=== PATIENT | female | born 1990 | race Caucasian/White ===

== ENCOUNTER 2018-08-30 15:26 | Outpatient (CLI) | payer OTHER | END 2018-08-30 16:46 | disposition home or self-care (01) | LOC: OBT 15:26 → L-D 15:27 → OBT 16:46 | PROVIDERS: ATTEND Obstetrics & Gynecology | DX: O26.893 Other specified pregnancy related conditions, third trimester (principal); Z3A.30 30 weeks gestation of pregnancy | CPT/HCPCS: 86850; 86885; 86900; 86901; 96372; J2790 ==

== ENCOUNTER 2018-09-09 09:28 | Emergency (ER) | payer OTHER ==
[~2018-09-09] VITALS: Ht 162.6 cm; Wt 106.0 kg
[2018-09-09 09:34] VITALS: BP 128/64; PULSE 97; RESP 18; Ht 162.6 cm; Wt 106.0 kg
[2018-09-09] MEDS ORDERED: ACETAMINOPHEN 500 MG TAB PO STA (10:25)
[2018-09-09] MEDS: KETOROLAC 60 MG INJ IM STA ×2 (10:39→10:53)
[2018-09-09] MEDS: traMADol 50 MG TAB PO ONE ×2 (10:39→10:53)
[2018-09-09] MEDS ORDERED: ACET500C5 PO (11:18)
[2018-09-09] MEDS ORDERED: ONDA4TAB14 PO (11:18)
[2018-09-09] MEDS ORDERED: AMOX1TAB9 PO (11:18)
--- NOTE | 2018-09-09 13:59 | ERD ---
ER Documentation Chief Complaint Chief Complaint pt has right facial swelling and tooth pain 10/10 x 1 day HPI History of Present Illness: 28-year-old female with complaint of right facial swelling and tooth pain. Patient reports pain started today. Patient reports known dental issues in which she has a cracked tooth from 2009 on top right quadrant of mouth tooth patient reports similar episode of this back in 2014 but to the bottom right moderate of mouth. Patient denies fever, chills, malaise. At home pharmacological/nonpharmacological treatment for symptoms: Denies Denies social concerns; Denies recent foreign travel ROS All systems reviewed and are negative except as per history of present illness. Medications Home Meds Active Scripts Acetaminophen* (Tylophen*) 500 Mg Capsule, 2 CAP PO Q6 PRN for PAIN AND OR ELEVATED TEMP, #20 CAP Prov:MARCELA VERDUGO NP 09/09/18 Ondansetron (Ondansetron Odt) 4 Mg Tab.rapdis, 4 MG PO Q8 PRN for NAUSEA AND/OR VOMITING, #10 TAB Prov:MARCELA VERDUGO NP 09/09/18 Amoxicillin/Potassium Clav (Amox-Clav 500-125 mg Tablet) 500-125 mg Tab, 1 TAB PO Q8 for dental infection for 10 Days, TAB Prov:MARCELA VERDUGO NP 09/09/18 Allergies Allergies: Coded Allergies: No Known Allergy (Unverified , 09/09/18) PMhx/Soc Medical and Surgical Hx: pt denies Medical Hx, pt denies Surgical Hx Hx Alcohol Use: No Hx Substance Use: No Hx Tobacco Use: No Physical Exam Vitals Vital Signs Date Temp Pulse Resp B/P (MAP) Pulse Ox O2 O2 Flow FiO2 Time Delivery Rate 09/09/18 98.1 97 18 128/64 100 09:34 (85) Physical Exam Const: No acute distress, afebrile Head: Atraumatic Eyes: Normal Conjunctiva ENT: Normal External Ears, Nose. Tenderness to palpation along gumline, mild fluctuance noted to gumline at tooth #4. Patient able to open mouth fully. Neck: Full range of motion. No meningismus. Resp: Clear to auscultation bilaterally Cardio: Regular rate and rhythm, no murmurs Abd: Soft, non tender, non distended. Normal bowel sounds Skin: No petechiae or rashes Back: No midline or flank tenderness Ext: No cyanosis, or edema Neur: Awake and alert Psych: Normal Mood and Affect Results 24 hrs Laboratory Tests Test 09/09/18 10:38 POC Beta HCG, Qualitative POSITIVE Current Medications Medications Dose Sig/Renetta Start Time Status Last (Trade) Ordered Route PRN Stop Time Admin Dose Reason Admin Ketorolac 60 mg ONCE STAT 09/09/18 DC Tromethamine IM 10:25 (Toradol) 09/09/18 10:27 Tramadol 50 mg ONCE ONCE 09/09/18 DC HCl PO 10:30 (Ultram) 09/09/18 10:31 1,000 mg ONCE STAT 09/09/18 DC 09/09/18 Acetaminophen PO 10:25 10:40 (Tylenol 09/09/18 10:27 Tab) Procedures/MDM ED course includes a thorough examination and history. Medications: Ketorolac, acetaminophen, tramadol Imaging: --- Labs: Urine Low suspicion for life-threatening medical emergency. Low suspicion for infectious emergency that requires hospitalization or immediate surgical intervention. Patient hemodynamically stable without fever. No incision and drainage indicated at this time. Otherwise healthy patient presenting with constellation of symptoms likely representing uncomplicated dental abscess/dental pain as characterized by history, physical exam findings, lab findings. Urine positive. Due to positive will not give tramadol and ketorolac. No respiratory distress, otherwise relatively well appearing and nontoxic. Patient educated on diagnoses, prescriptions, follow-up care, return precautions. Strict return precautions given for worsening condition; questions answered discharge. Disposition for discharge with followup in 2 days with PCP/clinic. Departure Diagnosis: Primary Impression: Dental abscess Additional Impression: Pain, dental Condition: Stable Patient Instructions: Dental Abscess, Dental Pain Referrals: COMMUNITY CLINICS YOU HAVE RECEIVED A MEDICAL SCREENING EXAM AND THE RESULTS INDICATE THAT YOU DO NOT HAVE A CONDITION THAT REQUIRES URGENT TREATMENT IN THE EMERGENCY DEPARTMENT. FURTHER EVALUATION AND TREATMENT OF YOUR CONDITION CAN WAIT UNTIL YOU ARE SEEN IN YOUR DOCTORS OFFICE WITHIN THE NEXT 1-2 DAYS. IT IS YOUR RESPONSIBILITY TO MAKE AN APPOINTMENT FOR FOLOW-UP CARE. IF YOU HAVE A PRIMARY DOCTOR --you should call your primary doctor and schedule an appointment IF YOU DO NOT HAVE A PRIMARY DOCTOR YOU CAN CALL OUR PHYSICIAN REFERRAL HOTLINE AT IF YOU CAN NOT AFFORD TO SEE A PHYSICIAN YOU CAN CHOSE FROM THE FOLLOWING [facility] [address] [place] [address] [facility] [address] [facility] [address] [facility] [address] [facility] [address] [facility] YOU HAVE RECEIVED A MEDICAL SCREENING EXAM AND THE RESULTS INDICATE THAT YOU DO NOT HAVE A CONDITION THAT REQUIRES URGENT TREATMENT IN THE EMERGENCY DEPARTMENT. FURTHER EVALUATION AND TREATMENT OF YOUR CONDITION CAN WAIT UNTIL YOU ARE SEEN IN YOUR DOCTORS OFFICE WITHIN THE NEXT 1-2 DAYS. IT IS YOUR RESPONSIBILITY TO MAKE AN APPOINTMENT FOR FOLOW-UP CARE. IF YOU HAVE A PRIMARY DOCTOR --you should call your primary doctor and schedule and appointment IF YOU DO NOT HAVE A PRIMARY DOCTOR YOU CAN CALL OUR PHYSICIAN REFERRAL HOTLINE AT . IF YOU CAN NOT AFFORD TO SEE A PHYSICIAN YOU CAN CHOSE FROM THE FOLLOWING [facility] INSTITUTIONS: [facility] [address] [place] [address] [facility] [address] [place] [address] [facility] + [facility] [address] [place] [address] [facility] ([facility] walk in clinic) Additional Instructions: Thank you very much for allowing us to participate in your care. Your health and safety is our top priority at [facility]. It is important to read all discharge instructions and education provided in your discharge packet. Call your primary care doctor TOMORROW for an appointment during the next 2-4 days and bring all the information and medications prescribed. Have prescriptions filled and follow precisely the directions on the label. -Augmentin is an antibiotic; take this medication every day every 8 hours as listed on your prescription. You must complete the entire course of treatment that is listed on your prescription this is very important because it takes a ce rtain number of days to kill the bacteria that is causing the infection. -Acetaminophen as a pain medication. Take this medication every 6-8 hours as needed. This medication is safe during -Zofran is a medication for nausea/vomitting; take this medication as needed for nausea/vomiting/decreased appetite. Augmentin can cause nausea or vomiting; so this medication is if you need it. If the symptoms get worse and your provider is unavailable, return to the Emergency Department immediately. MARCELA VERDUGO NP Sep 09, 2018 13:59
== END 2018-09-09 11:45 | disposition home or self-care (01) ==
LOC: FTE 09:28
DX: K04.7 Periapical abscess without sinus (principal)
CPT/HCPCS: 81025; Z7502; Z7610; 99283; J1885

== ENCOUNTER 2018-09-16 21:37 | Outpatient (CLI) | payer OTHER ==
[~2018-09-16] VITALS: Ht 162.6 cm; Wt 107.5 kg
[~2018-09-16 21:37] MED LIST: ACET500C5 PO; AMOX1TAB9 PO; ONDA4TAB14 PO
[2018-09-16 22:05] VITALS: BP 121/64; PULSE 84; RESP 18
[2018-09-16] MEDS ORDERED: PREN-19 PO (22:07)
[2018-09-16] MEDS ORDERED: LACTATED RINGER'S 1,000 ML IV ONE (23:00)
[2018-09-17] MEDS ORDERED: LACTATED RINGER'S 1,000 ML IV SCH
--- NOTE | 2018-09-17 00:38 | PN ---
Triage Information Date/Time September 17, 2018 Reason for visit: Abd/pelvic pain Weeks of Gestation 30w 4d /Para 6/5 Diabetes: none Hypertention: none Additional information Pt reports vaginal pressure and lower back pain since 09/16. No bleeding or leaking. +FM. Objective Vital Signs Date Temp Pulse Resp B/P (MAP) Pulse Ox O2 O2 Flow FiO2 Time Delivery Rate 09/16/18 98.1 84 18 121/64 Room Air 22:05 (83) Heart Rate: 140's Heart Rate Comments Accels to 175 BPM. No decels. Contractions: None Results/Medications Result Diagram: 09/16/18 2313 Results 24 hrs Laboratory Tests Test 09/16/18 21:40 09/16/18 23:13 Urine Color YELLOW Urine Clarity SLIGHTLY CLOUDY A Urine pH 6.0 Urine Specific [place] 1.020 Urine Ketones NEGATIVE Urine Nitrite NEGATIVE Urine Bilirubin NEGATIVE Urine Urobilinogen 1+ H Urine Leukocyte Esterase NEGATIVE Urine Microscopic RBC 2 Urine Microscopic WBC 3 Urine Squamous Epithelial Cells FEW Urine Bacteria FEW A Urine Mucus FEW A Urine Hemoglobin NEGATIVE Urine Glucose NEGATIVE Urine Total Protein NEGATIVE White Blood Count 12.9 H Red Blood Count 3.39 L Hemoglobin 10.0 L Hematocrit 30.7 L Mean Corpuscular Volume 90.6 Mean Corpuscular Hemoglobin 29.5 Mean Corpuscular Hemoglobin Concent 32.6 Red Cell Distribution Width 13.1 Platelet Count 365 Mean Platelet Volume 10.3 Immature Granulocytes % 0.400 Neutrophils % 73.0 Lymphocytes % 17.9 Monocytes % 7.9 Eosinophils % 0.6 Basophils % 0.2 Nucleated Red Blood Cells % 0.0 Immature Granulocytes # 0.050 H Neutrophils # 9.5 H Lymphocytes # 2.3 Monocytes # 1.0 H Eosinophils # 0.1 Basophils # 0.0 Nucleated Red Blood Cells # 0.0 Medications Current Medications Lactated Ringer's 1,000 ml @ 125 mls/hr Q8H IV ; Start 09/17/18 at 00:00 Imaging Results EFW 1464 grams 20th%tile. Cx length 3.6 cm/closed. Disposition: Discharge Assessment/Plan A: IUP at 30w 4d. False labor. P: After IV hydration the pt feels substantially better and is ready for d/c. Keep f/u appt 09/[address] Parks. PTL precautions reviewed. LISA ROWLEY MD Sep 17, 2018 00:38
--- NOTE | 2018-09-17 00:55 | TRIAGE ---
OB Triage Datetime Report Generated by CPN: 09/17/2018 00:54 Datetime: 09/16/2018 23:48 Vaginal Exam Membrane Status: Intact Datetime: 09/16/2018 23:46 Stage of : OB Triage Heart Rate FHR Baseline Rate: 140 Monitor Mode: External US FHR Baseline Changes: No Baseline Change Variability: Moderate 6-25 bpm Accelerations: 10X10 Decelerations: None Category: Category I Datetime: 09/16/2018 22:50 Stage of : OB Triage Labor Evaluation Monitor Mode: External Duration (sec)2399: 5-10sec Quality: Mild Pattern: Normal: <= 5 Contractions in 10 Minutes Resting Tone [place]: Relaxed Heart Rate FHR Baseline Rate: 150 Monitor Mode: External US FHR Baseline Changes: No Baseline Change Variability: Moderate 6-25 bpm Accelerations: 15X15 Decelerations: None Category: Category I Datetime: 09/16/2018 22:05 Time of Arrival: 09/16/2018 21:29 EGA: 30.3 Arrived By: Wheelchair Arrived From: Home Chief Complaint: c/o vag pressure since last night and back pain since 0400 Movement: Present Contractions: Denies/Absent Rupture of Membranes: Denies Vaginal Bleeding: None Vaginal Discharge: Denies Recent Sexual Intercouse: Denies Abdominal Trauma: Not Applicable Patient Complaints: Back Pain; Other Time Provider Notified: 09/16/2018 22:50 Provider Notified: Dr Parks Initial Plan: EFM,UA Datetime: 09/16/2018 21:43 Stage of : OB Triage Maternal Assessment Level of Consciousness: Fully Conscious Headache: Denies Blurred Vision: No Nausea/Vomiting: Denies RUQ Epigastric Pain: Denies Facial Edema: None Labor Evaluation Monitor Mode: External Resting Tone [place]: Relaxed Monitor Mode: External US Comments: FHT 150 Datetime: 08/30/2018 17:22 Stage of : OB Triage Datetime: 08/30/2018 17:20 Stage of : rhogam given in left buttocks.
== END 2018-09-17 00:36 | disposition home or self-care (01) ==
LOC: OBT 21:37 → L-D 21:37 → OBT 09-17 00:36
PROVIDERS: ATTEND Obstetrics & Gynecology
DX: O26.893 Other specified pregnancy related conditions, third trimester (principal); Z3A.30 30 weeks gestation of pregnancy; R10.2 Pelvic and perineal pain
CPT/HCPCS: 36415; 76815; 76817; 81001; 85025; 96360; J7120; Z7500; 81003; G0463

== ENCOUNTER 2018-11-09 18:53 | Observation (INO) | payer OTHER ==
[~2018-11-09] VITALS: Ht 165.1 cm; Wt 108.4 kg
[~2018-11-09 18:53] MED LIST changes: -ACET500C5 PO; -AMOX1TAB9 PO; -ONDA4TAB14 PO; +PREN-19 PO
[2018-11-09 19:05] VITALS: Ht 165.1 cm; Wt 108.4 kg
[2018-11-09] MEDS ORDERED: LACTATED RINGER'S 1,000 ML IV PRN (23:09)
[2018-11-09] MEDS ORDERED: METHYLERGONOVINE 0.2 MG INJ IM PRN (23:30)
[2018-11-09] MEDS ORDERED: MISOPROSTOL 200 MCG TAB PR PRN (23:30)
[2018-11-09] MEDS ORDERED: LIDOCAINE 1% (MPF) 30 ML INJ INJ PRN (23:30)
[2018-11-09] MEDS ORDERED: OXYTOCIN 30 UNITS/LR 500 ML IV PRN (23:30)
[2018-11-09] MEDS ORDERED: OXYTOCIN 30 UNITS/LR 500 ML IV SCH ×2 (23:30)
[2018-11-09] MEDS ORDERED: BUTORPHANOL 2 MG INJ IV PRN ×2 (23:30)
[2018-11-09] MEDS ORDERED: CARBOPROST 250 MCG INJ IM PRN (23:30)
[2018-11-09] MEDS ORDERED: IBUPROFEN 600 MG TAB PO PRN (23:30)
[2018-11-09] MEDS ORDERED: MINERAL OIL LIGHT 10 ML VIAL TOP ONE (23:30)
--- NOTE | 2018-11-09 23:56 | TRIAGE ---
OB Triage Datetime Report Generated by CPN: 11/09/2018 23:55 Datetime: 11/09/2018 20:57 Stage of : OB Triage Labor Evaluation Frequency: 5-8 Monitor Mode: External Quality: Mild Pattern: Normal: <= 5 Contractions in 10 Minutes Resting Tone [place]: Relaxed Heart Rate FHR Baseline Rate: 150 Monitor Mode: External US FHR Baseline Changes: No Baseline Change Variability: Moderate 6-25 bpm Accelerations: 15X15 Decelerations: None Category: Category I Vaginal Exam Dilatation (cms): 1.5 Effacement (%): 60 Station: -3 Exam By: Thelma Garza Amniotic Fluid Amount: None Amniotic Fluid Odor: None Vaginal Bleeding: None Pool: Negative Nitrazine: Negative Cervix, Consistency: Soft Cervix, Position: Posterior Presentation 'A': Cephalic Datetime: 11/09/2018 19:06 Time of Arrival: 11/09/2018 18:48 EGA: 38.1 Arrived By: Ambulatory Arrived From: Home Chief Complaint: back pain Movement: Present Contractions: Occasional Rupture of Membranes: Denies Vaginal Bleeding: Normal Show Vaginal Discharge: Denies Recent Sexual Intercouse: Yes Abdominal Trauma: Not Applicable Patient Complaints: Contractions; Back Pain Time Provider Notified: 11/09/2018 20:00 Initial Plan: NST Datetime: 09/17/2018 00:24 Stage of : OB Triage Monitor Mode: External Quality: Mild Pattern: Normal: <= 5 Contractions in 10 Minutes Resting Tone [place]: Relaxed Heart Rate FHR Baseline Rate: 140 Monitor Mode: External US FHR Baseline Changes: No Baseline Change Variability: Moderate 6-25 bpm Accelerations: 10X10 Category: Category I Pain Assessment Pain Scale: 0 Pain Presence: None/Denies Pain Type: N/A Datetime: 09/16/2018 22:05 EGA: 30.3
[2018-11-10] MEDS: LACTATED RINGER'S 1,000 ML IV SCH ×2 (06:06→11:19)
--- NOTE | 2018-11-10 12:45 | DS ---
Date/Time of Note Date/Time of Note DATE: 11/10/18 TIME: 12:41 Obstetrical Discharge Record Final Diagnosis Final Diagnosis: Term not delivered Complications Other (oligohydamnious) Augmentation: No Induction: No Rupture of Membranes: No Condition on Discharge Physical Assessment Last Vitals: vss afebrile Voiding: Yes Bowel Movement: Yes Breast: Soft, non-tender Fundus: Other () Abdomen and Incision: Calf Tenderness: No Patient Condition: Stable REMIGIO TAPIA MD Nov 10, 2018 12:45
--- NOTE | 2018-11-10 12:53 | PD.PPDC ---
STAFF THERAPIST Discharge Instruction Diagnosis [id number] Final Diagnosis: Ruidv8c IUP 38w2d NIL oligohydramnious Condition [id number] Patient Condition: Bqbiy0r Stable Diet Uedin1Sv Diet: Znfug3r Resume Regular Diet Activity/Restrictions [id number] Activity: [id number] Normal Activity Follow-up Provider Information: f/u with her OB Return to clinic for Comment: RTH with routine labor instructions REMIGIO TAPIA MD Nov 10, 2018 12:53
--- NOTE | 2018-11-12 18:36 | PREOPHP ---
DATE OF ADMISSION: 11/09/2018 HISTORY OF PRESENT ILLNESS: This is a 28-year-old lady with 6 para 5, EDC 11/22/2018 at 38 a nd 1/7 weeks , admitted to labor and delivery area because of lower abdominal pains and low b ack pains. She had care in my [place] office and the care was uneventful. She sta rted to have this lower abdominal pains and low back pains for the last few hours and getting worse u p to the time of admission. PAST PERSONAL HISTORY: No history of diabetes, TB, asthma. ALLERGIES: NO ALLERGIES. SOCIAL HISTORY: The patient does not smoke. She does not drink. MEDICATIONS: She does not take any drugs except her: 1. Iron. 2. Vitamins. GYNECOLOGIC HISTORY: She had menarche at the age of 13, every 28 days interval, 3 to 4 days duration and moderate in amount. FAMILY HISTORY: Grandmother on mother's side had diabetes. She is 7, para 5. First deliver y was 2008 and last was 2017, all normal deliveries. REVIEW OF SYSTEMS: CARDIOVASCULAR: No chest pains. RESPIRATORY: No cough. GASTROINTESTINAL: No diarrhea, no vomiting. GENITOURINARY: No dysuria. PHYSICAL EXAMINATION: GENERAL: Reveals a conscious, coherent lady and in no acute distress. VITAL SIGNS: Her blood pressure 120/80, pulse rate 80 per minute, respirations 16 per minute. BREASTS, HEART AND LUNGS: Within normal limits. ABDOMEN: Soft. Fundic height is 36 cm according to the nurse. PELVIC: Done by nurse revealed the cervix to be 1 cm dilated, thick, station -2 in cephalic presenta tion with the bag of water intact. EXTREMITIES: No pedal edema. ADMITTING DIAGNOSES: A 38 and 1/7 weeks intrauterine , rule out labor. The plans were explained to the patient by the nurse. The patient was observed overnight and the fol lowing day after admission, she was reevaluated by the nurse and the cervix was still 1 cm dilated. She was having mild irregular contractions, so she was planned to be discharged home and to be seen b y the laborist. I will like her to make an appointment to this clinic following day after admission. Dictated By: JOZEF ABRAMS/MILY Conf#: [id number] DID#: [id number] CC: MORE TAPIA MD;*End*
== END 2018-11-10 13:40 | disposition home or self-care (01) ==
LOC: L-D 18:53 → OBT 18:53 → L-D 22:33 → OBT 22:33 → INTOOBSV 22:33 → OBSVTOIN 23:09 → INTOOBSV 23:09 → L-D 11-10 06:09
PROVIDERS: ADMIT Obstetrics & Gynecology; ATTEND Obstetrics & Gynecology
DX: O47.1 False labor at or after 37 completed weeks of gestation (principal); O41.03X0 Oligohydramnios, third trimester, not applicable or unspecified; Z3A.38 38 weeks gestation of pregnancy
CPT/HCPCS: 76815; 76816; 76818; 81003; 84112; 85025; 85610; 85730; 86592; 86850; 86900; 86901; 87086; 87340; J7120; Z7500; 99217; G0378; G0463

== ENCOUNTER 2018-11-16 12:30 | Inpatient (IN) | payer OTHER ==
[~2018-11-16] VITALS: Ht 162.6 cm; Wt 109.0 kg
[2018-11-16] MEDS ORDERED: LIDOCAINE 1% (MPF) 30 ML INJ INJ PRN (13:00)
[2018-11-16] MEDS ORDERED: BUTORPHANOL 2 MG INJ IV PRN (13:00)
[2018-11-16] MEDS ORDERED: MISOPROSTOL 200 MCG TAB PR PRN ×2 (13:00→23:30)
[2018-11-16] MEDS ORDERED: OXYTOCIN 30 UNITS/LR 500 ML IV PRN ×2 (13:00→23:30)
[2018-11-16] MEDS ORDERED: METHYLERGONOVINE 0.2 MG INJ IM PRN ×2 (13:00→23:30)
[2018-11-16] MEDS ORDERED: CARBOPROST 250 MCG INJ IM PRN ×2 (13:00→23:30)
[2018-11-16] MEDS ORDERED: OXYTOCIN 30 UNITS/LR 500 ML IV SCH ×5 (13:00→23:49)
--- NOTE | 2018-11-16 13:04 | TRIAGE ---
OB Triage Datetime Report Generated by CPN: 11/16/2018 13:04 Datetime: 11/16/2018 13:02 Stage of : Labor Labor Evaluation Frequency: 0 Monitor Mode: External Pattern: Normal: <= 5 Contractions in 10 Minutes Resting Tone [place]: Relaxed Heart Rate FHR Baseline Rate: 140 Monitor Mode: External US Variability: Moderate 6-25 bpm Accelerations: 15X15 Decelerations: None Category: Category I Datetime: 11/16/2018 12:48 Vaginal Exam Dilatation (cms): 1.5 Effacement (%): 80 Station: -2 Exam By: Josh BORJA Datetime: 11/16/2018 12:41 Assessment Type: Triage Maternal Assessment Level of Consciousness: Keenly Alert, Responsive DTR's/Clonus: DTRs 2+; No Clonus Headache: Denies Blurred Vision: No Respiratory Effort: Unlabored; Regular Rhythm; Equal Expansion Breath Sounds, Left: Clear and Equal Breath Sounds, Right: Clear and Equal Nausea/Vomiting: Denies RUQ Epigastric Pain: Denies Lower Extremities Edema: None Degree: None Upper Extremities Edema: None Degree: None Facial Edema: None Fall Risk Assessment History of Falling: (0) No Secondary Diagnosis: (0) No Ambulatory Aid: (0) Bedrest/Nurse Assist IV Therapy: (0) No Gait: (0) Normal/Bedrest/Immobile Mental Status: (0) Oriented to Own Ability Fall Score: 0 Fall Risk Score Definition: No Risk: No action required Datetime: 11/16/2018 12:40 Time of Arrival: 11/16/2018 12:20 EGA: 39.1 Arrived By: Ambulatory Arrived From: Home Chief Complaint: PT. HERE C/O DFM Movement: Decreased Contractions: Denies/Absent Rupture of Membranes: Denies Vaginal Bleeding: None Vaginal Discharge: Present Recent Sexual Intercouse: Denies Abdominal Trauma: Not Applicable Patient Complaints: Cramping Time Provider Notified: 11/16/2018 12:45 Provider Notified: SALCEDA Datetime: 11/16/2018 12:38 Monitor Mode: External Monitor Mode: External US Datetime: 11/10/2018 13:30 Labor Evaluation Frequency: OCC Monitor Mode: External Quality: Mild Pattern: Normal: <= 5 Contractions in 10 Minutes Resting Tone [place]: Relaxed Heart Rate FHR Baseline Rate: 135 Monitor Mode: External US FHR Baseline Changes: No Baseline Change Variability: Moderate 6-25 bpm Accelerations: 15X15 Decelerations: None Category: Category I Datetime: 11/10/2018 12:37 Monitor Mode: External US Comments: Loss of contact. Patient sitting straight up in bed Datetime: 11/10/2018 12:30 Labor Evaluation Frequency: OCC Monitor Mode: External Quality: Mild Pattern: Normal: <= 5 Contractions in 10 Minutes Resting Tone [place]: Relaxed Heart Rate FHR Baseline Rate: 135 Monitor Mode: External US FHR Baseline Changes: No Baseline Change Variability: Moderate 6-25 bpm Accelerations: 10X10 Decelerations: None Category: Category I Datetime: 11/10/2018 12:03 Vaginal Exam Dilatation (cms): 1.5 Effacement (%): 50 Station: -3 Exam By: BY Datetime: 11/10/2018 11:30 Labor Evaluation Frequency: OCC Monitor Mode: External Quality: Mild Pattern: Normal: <= 5 Contractions in 10 Minutes Resting Tone [place]: Relaxed Heart Rate FHR Baseline Rate: 135 Monitor Mode: External US FHR Baseline Changes: No Baseline Change Variability: Moderate 6-25 bpm Accelerations: 10X10 Decelerations: None Category: Category I Pain Presence: None/Denies Datetime: 11/10/2018 10:30 Labor Evaluation Frequency: OCC Monitor Mode: External Quality: Mild Pattern: Normal: <= 5 Contractions in 10 Minutes Resting Tone [place]: Relaxed Heart Rate FHR Baseline Rate: 140 Monitor Mode: External US FHR Baseline Changes: No Baseline Change Variability: Moderate 6-25 bpm Accelerations: 15X15 Decelerations: None Category: Category I Pain Presence: None/Denies Datetime: 11/10/2018 09:30 Labor Evaluation Frequency: OCC Monitor Mode: External Quality: Mild Pattern: Normal: <= 5 Contractions in 10 Minutes Resting Tone [place]: Relaxed Heart Rate FHR Baseline Rate: 130 Monitor Mode: External US FHR Baseline Changes: No Baseline Change Variability: Moderate 6-25 bpm Accelerations: 15X15 Decelerations: None Category: Category I Pain Presence: None/Denies Datetime: 11/10/2018 08:30 Labor Evaluation Frequency: OCC Monitor Mode: External Quality: Mild Pattern: Normal: <= 5 Contractions in 10 Minutes Resting Tone [place]: Relaxed Heart Rate FHR Baseline Rate: 140 Monitor Mode: External US FHR Baseline Changes: No Baseline Change Variability: Moderate 6-25 bpm Accelerations: 10X10 Decelerations: None Category: Category I Pain Presence: None/Denies Datetime: 11/10/2018 07:30 Labor Evaluation Frequency: OCC Monitor Mode: External Quality: Mild Pattern: Normal: <= 5 Contractions in 10 Minutes Resting Tone [place]: Relaxed Heart Rate FHR Baseline Rate: 140 Monitor Mode: External US FHR Baseline Changes: No Baseline Change Variability: Moderate 6-25 bpm Accelerations: 15X15 Decelerations: None Category: Category I Pain Presence: None/Denies Datetime: 11/10/2018 07:21 Assessment Type: Ongoing Assessment Maternal Assessment Level of Consciousness: Keenly Alert, Responsive DTR's/Clonus: DTRs 2+; No Clonus Headache: Denies Blurred Vision: No Respiratory Effort: Unlabored; Regular Rhythm; Equal Expansion Breath Sounds, Left: Clear and Equal Breath Sounds, Right: Clear and Equal Nausea/Vomiting: Denies RUQ Epigastric Pain: Denies Lower Extremities Edema: None Degree: None Upper Extremities Edema: None Degree: None Facial Edema: None Fall Risk Assessment History of Falling: (0) No Secondary Diagnosis: (0) No Ambulatory Aid: (0) Bedrest/Nurse Assist IV Therapy: (20) Yes Gait: (0) Normal/Bedrest/Immobile Mental Status: (0) Oriented to Own Ability Fall Score: 20 Fall Risk Score Definition: No Risk: No action required Datetime: 11/10/2018 07:00 Stage of : Labor Maternal Assessment Level of Consciousness: Keenly Alert, Responsive DTR's/Clonus: DTRs 2+; No Clonus Headache: Denies Breath Sounds, Left: Clear and Equal Breath Sounds, Right: Clear and Equal Nausea/Vomiting: Denies RUQ Epigastric Pain: Denies Labor Evaluation Frequency: OCCASIONAL Monitor Mode: External Duration (sec)2399: 70 Quality: Mild Pattern: Normal: <= 5 Contractions in 10 Minutes Resting Tone [place]: Relaxed Heart Rate FHR Baseline Rate: 130 Monitor Mode: External US FHR Baseline Changes: No Baseline Change Variability: Moderate 6-25 bpm Accelerations: 15X15 Decelerations: Variable Category: Category II Datetime: 11/10/2018 06:00 Stage of : Labor Maternal Assessment Level of Consciousness: Keenly Alert, Responsive DTR's/Clonus: DTRs 2+; No Clonus Headache: Denies Breath Sounds, Left: Clear and Equal Breath Sounds, Right: Clear and Equal Nausea/Vomiting: Denies RUQ Epigastric Pain: Denies Labor Evaluation Frequency: IRREG Monitor Mode: External Duration (sec)2399: 50-60 Quality: Mild Pattern: Normal: <= 5 Contractions in 10 Minutes Resting Tone [place]: Relaxed Heart Rate FHR Baseline Rate: 135 Monitor Mode: External US FHR Baseline Changes: No Baseline Change Variability: Moderate 6-25 bpm Accelerations: 15X15 Decelerations: None Category: Category I Datetime: 11/10/2018 05:00 Stage of : Labor Maternal Assessment Level of Consciousness: Keenly Alert, Responsive DTR's/Clonus: DTRs 2+; No Clonus Headache: Denies Breath Sounds, Left: Clear and Equal Breath Sounds, Right: Clear and Equal Nausea/Vomiting: Denies RUQ Epigastric Pain: Denies Temperature Route: Oral Labor Evaluation Frequency: IRREG Monitor Mode: External Duration (sec)2399: 50-60 Quality: Mild Pattern: Normal: <= 5 Contractions in 10 Minutes Resting Tone [place]: Relaxed Heart Rate FHR Baseline Rate: 135 Monitor Mode: External US FHR Baseline Changes: No Baseline Change Variability: Moderate 6-25 bpm Accelerations: 15X15 Decelerations: None Category: Category I Datetime: 11/10/2018 04:00 Stage of : Labor Maternal Assessment Level of Consciousness: Keenly Alert, Responsive DTR's/Clonus: DTRs 2+; No Clonus Headache: Denies Breath Sounds, Left: Clear and Equal Breath Sounds, Right: Clear and Equal Nausea/Vomiting: Denies RUQ Epigastric Pain: Denies Labor Evaluation Frequency: IRREG Monitor Mode: External Duration (sec)2399: 50-60 Quality: Mild Pattern: Normal: <= 5 Contractions in 10 Minutes Resting Tone [place]: Relaxed Heart Rate FHR Baseline Rate: 140 Monitor Mode: External US FHR Baseline Changes: No Baseline Change Variability: Moderate 6-25 bpm Accelerations: 15X15 Decelerations: None Category: Category I Datetime: 11/10/2018 03:00 Stage of : Labor Maternal Assessment Level of Consciousness: Keenly Alert, Responsive DTR's/Clonus: DTRs 2+; No Clonus Headache: Denies Breath Sounds, Left: Clear and Equal Breath Sounds, Right: Clear and Equal Nausea/Vomiting: Denies RUQ Epigastric Pain: Denies Labor Evaluation Frequency: IRREG Monitor Mode: External Duration (sec)2399: 50-60 Quality: Mild Pattern: Normal: <= 5 Contractions in 10 Minutes Resting Tone [place]: Relaxed Heart Rate FHR Baseline Rate: 140 Monitor Mode: External US FHR Baseline Changes: No Baseline Change Variability: Moderate 6-25 bpm Accelerations: 15X15 Decelerations: None Category: Category I Datetime: 11/10/2018 02:00 Stage of : Labor Maternal Assessment Level of Consciousness: Keenly Alert, Responsive DTR's/Clonus: DTRs 2+; No Clonus Headache: Denies Breath Sounds, Left: Clear and Equal Breath Sounds, Right: Clear and Equal Nausea/Vomiting: Denies RUQ Epigastric Pain: Denies Labor Evaluation Frequency: IRREG Monitor Mode: External Duration (sec)2399: 50-60 Quality: Mild Pattern: Normal: <= 5 Contractions in 10 Minutes Resting Tone [place]: Relaxed Heart Rate FHR Baseline Rate: 140 Monitor Mode: External US FHR Baseline Changes: No Baseline Change Variability: Moderate 6-25 bpm Accelerations: 15X15 Decelerations: None Category: Category I Datetime: 11/10/2018 01:00 Stage of : Labor Assessment Type: Admission Assessment Maternal Assessment Level of Consciousness: Keenly Alert, Responsive DTR's/Clonus: DTRs 2+; No Clonus Headache: Denies Blurred Vision: No Respiratory Effort: Unlabored; Regular Rhythm; Equal Expansion Breath Sounds, Left: Clear and Equal Breath Sounds, Right: Clear and Equal Nausea/Vomiting: Denies RUQ Epigastric Pain: Denies Lower Extremities Edema: None Degree: None Upper Extremities Edema: None Degree: None Facial Edema: None Temperature Route: Oral Fall Risk Assessment History of Falling: (0) No Secondary Diagnosis: (0) No Ambulatory Aid: (0) Bedrest/Nurse Assist IV Therapy: (0) No Gait: (0) Normal/Bedrest/Immobile Mental Status: (0) Oriented to Own Ability Fall Score: 0 Fall Risk Score Definition: No Risk: No action required Labor Evaluation Frequency: IRREG Monitor Mode: External Duration (sec)2399: 50-60 Quality: Mild Pattern: Normal: <= 5 Contractions in 10 Minutes Resting Tone [place]: Relaxed Heart Rate FHR Baseline Rate: 140 Monitor Mode: External US FHR Baseline Changes: No Baseline Change Variability: Moderate 6-25 bpm Accelerations: 15X15 Decelerations: None Category: Category I Datetime: 11/10/2018 00:34 Heart Rate FHR Baseline Rate: 140 Monitor Mode: External US Category: Category I Datetime: 11/10/2018 00:26 Monitor Mode: External Quality: Mild Pattern: Normal: <= 5 Contractions in 10 Minutes Resting Tone [place]: Relaxed Heart Rate FHR Baseline Rate: 130 Monitor Mode: External US FHR Baseline Changes: No Baseline Change Variability: Moderate 6-25 bpm Accelerations: 15X15 Decelerations: None Category: Category I Datetime: 11/09/2018 23:27 Stage of : Labor Monitor Mode: External Quality: Mild Pattern: Normal: <= 5 Contractions in 10 Minutes Resting Tone [place]: Relaxed Heart Rate FHR Baseline Rate: 130 Monitor Mode: External US FHR Baseline Changes: No Baseline Change Variability: Moderate 6-25 bpm Accelerations: 15X15 Decelerations: None Category: Category I Datetime: 11/09/2018 22:33 Stage of : OB Triage Labor Evaluation Frequency: 4-8 Monitor Mode: External Quality: Mild Pattern: Normal: <= 5 Contractions in 10 Minutes Resting Tone [place]: Relaxed Heart Rate FHR Baseline Rate: 130 Monitor Mode: External US FHR Baseline Changes: No Baseline Change Variability: Moderate 6-25 bpm Accelerations: 15X15 Decelerations: None Category: Category I Datetime: 11/09/2018 20:26 Monitor Mode: External Quality: Mild Pattern: Normal: <= 5 Contractions in 10 Minutes Resting Tone [place]: Relaxed Datetime: 11/09/2018 20:00 Stage of : OB Triage Labor Evaluation Frequency: x1 Monitor Mode: External Quality: Mild Pattern: Normal: <= 5 Contractions in 10 Minutes Resting Tone [place]: Relaxed Heart Rate FHR Baseline Rate: 140 Monitor Mode: External US FHR Baseline Changes: No Baseline Change Variability: Moderate 6-25 bpm Accelerations: 15X15 Decelerations: None Category: Category I Datetime: 11/09/2018 19:21 Stage of : OB Triage Maternal Assessment Level of Consciousness: Keenly Alert, Responsive Headache: Denies Blurred Vision: No Nausea/Vomiting: Denies RUQ Epigastric Pain: Denies Facial Edema: None Monitor Mode: External Resting Tone [place]: Relaxed Heart Rate FHR Baseline Rate: 140 Monitor Mode: External US FHR Baseline Changes: No Baseline Change Variability: Moderate 6-25 bpm Accelerations: 15X15 Decelerations: None Category: Category I Pain Assessment Pain Scale: 5 Pain Presence: Intermittent Pain Type: Contraction Pain Location: Abdomen Datetime: 11/09/2018 19:06 EGA: 38.1 Provider Notified: Salceda Datetime: 09/16/2018 22:05 EGA: 30.3
[2018-11-16] MEDS: LACTATED RINGER'S 1,000 ML IV SCH ×2 (14:40→19:36)
--- NOTE | 2018-11-16 20:09 | PREAC ---
Date/Time of Note Date/Time of Note DATE: 11/16/18 TIME: 20:08 Anesthesia Eval and Record Evaluation Time Pre-Procedure Interview DATE: 11/16/18 TIME: 20:08 Age 28 Sex female NPO: 8 hrs Preoperative diagnosis labor pain Planned procedure epidural Past Medical History Past Medical History: Includes : Gestational age: (39.1) Surgery & Anesthesia Issues No known issue Meds Anticoagulation: No Beta Sundeep within 24 hr: No Reason Beta Sundeep not given: Pt. not on B-Sundeep Reported Medications Vit #76/Iron,Carb/FA (Prenatabs Rx Tablet) 1 Each Tablet, 1 EACH PO DAILY, TAB 09/16/18 Current Medications Lactated Ringer's 1,000 ml @ 125 mls/hr Q8H IV Last administered on 11/16/18at 19:36; Admin Dose 125 MLS/HR; Start 11/16/18 at 12:59 Butorphanol Tartrate (Stadol) 2 mg Q2H PRN IV .PAIN SCALE 6-10; Start 11/16/18 at 13:00 Lidocaine (Xylocaine 1% (Mpf)) 30 ml ONCE PRN INJ .EPISIOTOMY; Start 11/16/18 at 13:00 Oxytocin/Lactated Ringer's 500 ml @ 500 mls/hr ONCE POST IV ; Start 11/16/18 at 13:00 Oxytocin/Lactated Ringer's 500 ml @ 125 mls/hr POST IV ; Start 11/16/18 at 13:00 Oxytocin/Lactated Ringer's 500 ml @ 0 mls/hr ONCE PRN IV .VAGINAL BLEEDING; Start 11/16/18 at 13:00 Methylergonovine Maleate (Methergine) 0.2 mg ONCE PRN IM .VAGINAL BLEEDING; Start 11/16/18 at 13:00 Carboprost Tromethamine (Hemabate) 250 mcg ONCE PRN IM .VAGINAL BLEEDING; Start 11/16/18 at 13:00 Misoprostol (Cytotec) 1,000 mcg ONCE PRN OK .VAGINAL BLEEDING; Start 11/16/18 at 13:00 Oxytocin/Lactated Ringer's 500 ml @ 0 mls/hr FOR AUGMENTATION IV Last administered on 11/16/18at 14:56; Admin Dose 1 MLS/HR; Start 11/16/18 at 13:00 Meds reviewed: Yes Allergies Coded Allergies: No Known Allergy (Unverified , 09/16/18) Allergies Reviewed: Yes Labs/Studies Labs Reviewed: Reviewed by anesthesiologist Result Diagram: 11/16/18 1415 Laboratory Tests 11/16/18 14:15 Blood Bank Test 11/16/18 14:15 Antibody Screen NEGATIVE Blood Type O NEGATIVE Rh Immune Globulin Candidate NO test: Positive Studies: ECG (n/a), CXR (n/a) Pre-procedure Exam Airway: Adequate mouth opening Mallampati: Mallampati I Teeth: Normal Lung: Normal Heart: Normal ASA Physical Status ASA physical status: 2 Emergency: None Planned Anesthetic Neuraxial: Epidural Pre-operative Attestations Prior to commencing anesthesia and surgery, the patient was re-evaluated, there was verification of: *The patient's identity *The results of appropriate recent lab work and preoperative vital signs *The above evaluation not changing prior to induction *Anesthetic plan, risk benefits, alternative and complications discussed with patient/family; questions answered; patient/family understands, accepts and wishes to proceed. MARIO EVANGELISTA MD Nov 16, 2018 20:08
[2018-11-16] MEDS ORDERED: FENTAnyl 2MCG/ML-ROPIV 0.2% 100 ML ONE (20:18)
[2018-11-16] MEDS ORDERED: DIPHENHYDRAMINE 50 MG INJ IV PRN (21:00)
[2018-11-16] MEDS ORDERED: NALOXONE (0.4 MG/ML) INJ IV PRN (21:00)
[2018-11-16] MEDS ORDERED: ONDANSETRON 4 MG INJ IV PRN (21:00)
[2018-11-16] MEDS ORDERED: FENTAnyl 2MCG/ML-ROPIV 0.2% 100 ML BAG EPI SCH (21:00)
--- NOTE | 2018-11-16 21:48 | PREOPHP ---
DATE OF ADMISSION: 11/16/2018 HISTORY OF PRESENT ILLNESS: This is a 28-year-old lady, 6, para 5, EDC November 22, 2018, at 39 a nd 1/7 weeks, admitted to labor and delivery area in early labor with decreased movement. She had care in my [place] office and the care was uneventful. PAST PERSONAL HISTORY: No history of diabetes, TB, asthma. ALLERGIES: NO ALLERGIES. SOCIAL HISTORY: The patient does not smoke. She does not drink. MEDICATIONS: She does not take any drugs except her iron and vitamins. GYNECOLOGIC HISTORY: She had menarche at the age of 13, every 28 days interval, 3 to 4 days duration and moderate in amount. FAMILY HISTORY: Grandmother on mother's side had diabetes. She is 6, para 5. First deliver y was in 2008, last delivery was in 2017, all normal deliveries. The largest baby weighed 7 pounds. REVIEW OF SYSTEMS: CARDIOVASCULAR: No chest pains. RESPIRATORY: No cough. GASTROINTESTINAL: No diarrhea, no vomiting. GENITOURINARY: No dysuria. PHYSICAL EXAMINATION: GENERAL: Reveals a conscious, coherent lady and in no acute distress. VITAL SIGNS: Her blood pressure 120/80, pulse rate 80 per minute, respirations 16 per minute. BREASTS, HEART, AND LUNGS: Within normal limits. ABDOMEN: Soft, fundic height 37 cm. heart tones 140 per minute. PELVIC: Exam done by me at 7:55 p.m. on 11/16/2018 revealed the cervix to be 4 cm dilated, 100% effa felicity, station 0 in cephalic presentation with the bag of water intact. EXTREMITIES: No pedal edema. ADMITTING DIAGNOSIS: A 39 and 1/7 weeks intrauterine in early labor. PLAN: The patient had artificial rupture of membranes. scalp electrodes and intrauterine pres sure catheter was inserted. The patient was advised to have Pitocin augmentation and the patient wan luis antonio to go for labor epidural. Dictated By: JOZEF HARMON MD NS/NTS Conf#: [id number] DID#: [id number] CC: JOZEF HARMON MD;*EndCC*
[2018-11-16] MEDS ORDERED: morphine SULFATE/PF (10 MG/10 ML) INJ ONE (23:27)
[2018-11-16] MEDS ORDERED: CEFAZOLIN 1 GM INJ ONE (23:27)
[2018-11-16] MEDS ORDERED: KETOROLAC 30 MG INJ ONE (23:27)
[2018-11-16] MEDS ORDERED: METOCLOPRAMIDE 10 MG INJ ONE (23:27)
[2018-11-16] MEDS ORDERED: AZITHROMYCIN 500MG/NS (PMX) 250 ML IVPB ONE (23:30)
[2018-11-16] MEDS ORDERED: CEFAZOLIN 2 GM/50 ML (PMX) 50 ML IVPB SCH (23:30)
--- NOTE | 2018-11-16 23:46 | QN ---
Documentation Comment I was called to evaluate the heart rate tracing heart rate tracing noted to be category 2 with decelerations O2 mask was placed, patient was turned to her side, oxytocin augmentation was discontinued Amnioinfusion was ordered and still intolerance to labor was noted Therefore decision was made to take the patient to the operating room to proceed with primary for intolerance to labor Although once the patient in the OR while being prepped for surgery was noted to be fully dilated and started pushing Please refer to the normal spontaneous vaginal delivery summary for the details SISI WHITING MD Nov 16, 2018 23:46
[2018-11-16] MEDS: LACTATED RINGER'S 1,000 ML IV* SCH (23:49)
--- NOTE | 2018-11-16 23:49 | LDN ---
Date/Time of Note Date/Time of Note DATE: 11/16/18 TIME: 23:46 Delivery Summary Weeks of Gestation Term gestation Placenta Delivered: Spontaneously Meconium: none Episiotomy: No Anesthesia type: Epidural Estimated blood loss: 100 Sponge & Needle done & correct: Yes All needle counts correct: Yes Any foreign bodies felt in the: No Infant Delivery Information Sex Sex: female Apgars 1 Minute: 9 5 Minute: 9 Suctioning Nose & mouth suctioned at watson: Yes Delee suction performed: No Umbilical Cord Umbilical cord with: 3 Vessels Cord presentations: no nuchal cord Cord Blood was obtained: Yes Mother & Baby Disposition Disposition Baby's weight 6 pounds 9 ounces/ 2985 grams Mom & Baby to Maternity; Good: Yes Baby to NICU: No Copies To: CC: JOZEF HARMON MD ; SISI WHITING MD Nov 16, 2018 23:49
[2018-11-17] MEDS ORDERED: MAGNESIUM HYDROXIDE 30ML CUP PO PRN
[2018-11-17] MEDS ORDERED: OXYTOCIN 30 UNITS/LR 500 ML IV PRN
[2018-11-17] MEDS ORDERED: MISOPROSTOL 200 MCG TAB PR PRN
[2018-11-17] MEDS ORDERED: LANOLIN HPA 1 PKT TOP PRN
[2018-11-17] MEDS ORDERED: BENZOCAINE 20% 56 ML SPRAY TOP PRN
[2018-11-17] MEDS ORDERED: WITCH HAZEL/GLYCERIN PAD PR PRN
[2018-11-17] MEDS ORDERED: ACETAMINOPHEN 325 MG TAB PO PRN ×2
[2018-11-17] MEDS ORDERED: SENNA/DOCUSATE NA (8.6MG/50MG) TAB PO PRN
[2018-11-17] MEDS ORDERED: DIBUCAINE 1% 30 GM OINT TOP PRN
[2018-11-17] MEDS ORDERED: CARBOPROST 250 MCG INJ IM PRN
[2018-11-17] MEDS ORDERED: METHYLERGONOVINE 0.2 MG INJ IM PRN
[2018-11-17 01:55] VITALS: BP 93/48; PULSE 55; RESP 18
[2018-11-17] MEDS: LACTATED RINGER'S 1,000 ML IV SCH (04:55)
[2018-11-17 06:24] VITALS: BP 104/62; PULSE 77; RESP 19
[2018-11-17 09:04] VITALS: BP 105/69; PULSE 65; RESP 18
[2018-11-17] MEDS ORDERED: ONDANSETRON 4 MG INJ IV PRN ×2 (09:35)
--- NOTE | 2018-11-17 09:35 | PAC ---
Date/Time of Note Date/Time of Note DATE: 11/17/18 TIME: 09:35 Post-Anesthesia Notes Post-Anesthesia Note Last documented vital signs Vital Signs Date Temp Pulse Resp B/P (MAP) Pulse Ox O2 O2 Flow FiO2 Time Delivery Rate 11/17/18 98.5 65 18 105/69 98 Room Air 09:04 (81) Activity: WNL Respiratory function: WNL Cardiovascular function: WNL Mental status: Baseline Pain reasonably controlled: Yes Hydration appropriate: Yes Nausea/Vomiting absent: No MARIO EVANGELISTA MD Nov 17, 2018 09:35
[2018-11-17 12:30] VITALS: BP 99/64; PULSE 82; RESP 18
[2018-11-17] MEDS: LACTATED RINGER'S 1,000 ML IV* SCH ×3 (12:50→23:49)
[2018-11-17 14:00] VITALS: Ht 162.6 cm; Wt 109.0 kg
[2018-11-17 16:30] VITALS: BP 114/61; PULSE 80; RESP 20
[2018-11-17 21:00] VITALS: BP 116/57; PULSE 74; RESP 22
[2018-11-17] MEDS ORDERED: IBUPROFEN 600 MG TAB PO PRN (23:30)
[2018-11-18 04:40] VITALS: BP 112/65; PULSE 72; RESP 21
[2018-11-18] MEDS: LACTATED RINGER'S 1,000 ML IV* SCH (07:49)
[2018-11-18 08:30] VITALS: BP 108/62; PULSE 64; RESP 16
--- NOTE | 2018-11-19 17:57 | DELSUM ---
Delivery Summary A-C Datetime Report Generated by CPN: 11/19/2018 17:57 DELIVERY PERSONNEL Recording Studio Set Up Worker: Zuniga, Zamzam MATERNAL INFORMATION Delivery Anesthesia: Epidural Medications in Delivery: 30 UNITS PITOCIN Delivery QBL (ml): 300 Placenta Cultured: No Maternal Complications: None LABOR SUMMARY EDC: 11/22/2018 00:00 No. Babies in Womb: 1 Attempted: No Labor Anesthesia: Epidural LABOR INFORMATION Reason for Induction: Not Applicable Onset of Labor: 11/16/2018 05:00 Complete Dilatation: 11/16/2018 23:28 Group B Beta Strep: Negative Antibiotics # of Doses: 1 Antibiotics Time of Last Dose: 11/16/2018 23:26 Steroids Given: None Reason Steroids Not Administered: Not Applicable MEMBRANES Membranes Rupture Method: Artificial Rupture of Membranes: 11/16/2018 19:55 Length of Rupture (hr): 3.58 Amniotic Fluid Color: Clear Amniotic Fluid Amount: Moderate Amniotic Fluid Odor: None STAGES OF LABOR Stage 1 hr: 18 Stage 1 min: 28 Stage 2 hr: 0 Stage 2 min: 2 Stage 3 hr: 0 Stage 3 min: 13 Total Time in Labor hr: 18 Total Time in Labor min: 43 VAGINAL DELIVERY Episiotomy: None Laceration Extension: N/A Laceration Type: None Laceration Repair: No Initial Vag Sponge Count: 10 Final Vag Sponge Count: 10 Initial Vag Sharps Count: 1 Final Vag Sharps Count: 1 Sponge Count Correct: Yes; Vaginal Sweep Performed Sharps Count Correct: Yes BABY A INFORMATION Delivery Date/Time: 11/16/2018 23:30 Method of Delivery: Vaginal Born in Route : No : N/A Forceps: N/A Vacuum Extraction: N/A Shoulder Dystocia : N/A SHOULDER DYSTOCIA BABY A Delivery Date/Time: 11/16/2018 23:30 PRESENTATION/POSITION BABY A Presentation: Cephalic Cephalic Presentation: Vertex Breech Presentation: N/A PLACENTA INFORMATION BABY A Placenta Delivery Time : 11/16/2018 23:43 Placenta Method of Delivery: Expressed Placenta Status: Delivered SCORES BABY A Heart Rate 1 min: >100 bpm Resp Effort 1 min: Good Cry Reflex Irritability 1 min: Cough/Sneeze/Pulls Away Muscle Tone 1 min: Active Motion Color 1 min: Body [place], Extremit Blue Resuscitation Effort 1 min: Tactile Stimulation SCORE 1 MIN: 9 Heart Rate 5 min: >100 bpm Resp Effort 5 min: Good Cry Reflex Irritability 5 min: Cough/Sneeze/Pulls Away Muscle Tone 5 min: Active Motion Color 5 min: Body [place], Extremit Blue Resuscitation Effort 5 min: Tactile Stimulation SCORE 5 MIN: 9 INFANT INFORMATION BABY A Gestational Age at Delivery: 39.1 Gestational Status: Full Term- 39- 40.6 Weeks Outcome : Liveborn, with signs of life Infant Condition : Stable Sex: Female IDENTIFICATION/MEDS BABY A ID Band Number: [id number] ID Band Location: Right Leg; Left Arm Sensor Applied: Yes Sensor Number: [id number] Sensor Location : Cord Clamp Vitamin K Given : Not Given Erythromycin Given: Not Given WEIGHT/LENGTH BABY A Infant Birthweight (gm): 2985 Weight (lb): 6 Infant Weight (oz): 9 Length (in): 18.00 Infant Length (cm): 45.72 CORD INFORMATION BABY A No. Cord Vessels: 3 Nuchal Cord : N/A Cord Blood Taken: Yes Infant Suction: Mouth; Nose ASSESSMENT BABY A Infant Complications: Multiple Late Decels; Multiple Variable Decels Physical Findings at Delivery: Within Normal Limits Infant Respirations: Appears Normal Bail Bond Agent/ALS Called : No Care By: MARTINA Transferred To: Remains with Mother
== END 2018-11-18 17:56 | disposition home or self-care (01) | DRG 807 ==
LOC: L-D 12:30 → OBT 12:30 → L-D 13:00 → PP1 11-17 01:53
PROVIDERS: ADMIT Obstetrics & Gynecology; ATTEND Obstetrics & Gynecology
PROC: 10E0XZZ Delivery of Products of Conception, External Approach (ICD-10-PCS; principal; 2018-11-16)
PROC: 10907ZC Drainage of Amniotic Fluid, Therapeutic from Products of Conception, Via Natural or Artificial Opening (ICD-10-PCS; 2018-11-16)
PROC: 10H073Z Insertion of Monitoring Electrode into Products of Conception, Via Natural or Artificial Opening (ICD-10-PCS; 2018-11-16)
PROC: 4A1H74Z Monitoring of Products of Conception, Cardiac Electrical Activity, Via Natural or Artificial Opening (ICD-10-PCS; 2018-11-16)
PROC: 10H07YZ Insertion of Other Device into Products of Conception, Via Natural or Artificial Opening (ICD-10-PCS; 2018-11-16)
PROC: 3E0E77Z Introduction of Electrolytic and Water Balance Substance into Products of Conception, Via Natural or Artificial Opening (ICD-10-PCS; 2018-11-16)
DX: O36.8130 Decreased fetal movements, third trimester, not applicable or unspecified (principal); Z37.0 Single live birth; Z3A.39 39 weeks gestation of pregnancy
CPT/HCPCS: 62322; 85025; 85610; 85730; 86592; 86850; 86885; 86900; 86901; 88307; 99464; G0463; J0456; J0690; J1885; J2274; J2405; J2590; J2765; J2790; J3010; J7120